=== PATIENT | male | born 1985 ===

== ENCOUNTER 2016-12-09 07:00 | Inpatient (IN) ==
[2016-12-09] MEDS ORDERED: diphenhydrAMINE CAP 25 MG CAPSULE PO PRN (09:07)
[2016-12-09] MEDS ORDERED: guaiFENesin 200 MG/10 ML UDCUP PO PRN (09:07)
[2016-12-09] MEDS ORDERED: chlorproMAZINE INJ 25 MG in SODIUM CHLORIDE 0.9% 100 ML IV PRN (09:07)
[2016-12-09] MEDS ORDERED: MAGNESIUM HYDROXIDE SUSP 30 ML UDCUP PO PRN (09:07)
[2016-12-09] MEDS ORDERED: MYLANTA/LIDO VISC 2:1 300 ML BOTTLE SWISH/SPIT PRN (09:07)
[2016-12-09] MEDS ORDERED: traMADol 50 MG TABLET PO PRN (09:07)
[2016-12-09] MEDS ORDERED: chlorproMAZINE 25 MG TABLET PO PRN (09:07)
[2016-12-09] MEDS ORDERED: MYLANTA/LIDO VISC 2:1 300 ML BOTTLE SWISH/SWAL PRN (09:07)
[2016-12-09] MEDS ORDERED: chlorproMAZINE INJ 50 MG in SODIUM CHLORIDE 0.9% 100 ML IV PRN (09:07)
[2016-12-09] MEDS ORDERED: LACTULOSE 20 GM/30 ML UDCUP PO PRN (09:07)
[2016-12-09] MEDS ORDERED: ALUMINUM/MAGNES/SIMETH MAX STR 30 ML UDCUP PO PRN (09:07)
[2016-12-09] MEDS ORDERED: LOPERAMIDE 2 MG CAPSULE PO PRN ×2 (09:07)
[2016-12-09] MEDS ORDERED: ACETAMINOPHEN 325 MG TABLET PO PRN (09:07)
[2016-12-09] MEDS ORDERED: TEMAZEPAM 7.5 MG CAPSULE PO PRN (09:07)
[2016-12-09] MEDS ORDERED: ALPRAZolam 0.25 MG TABLET PO PRN (09:07)
[2016-12-09] MEDS ORDERED: BENZTROPINE 2 MG/2 ML AMP IV PRN (09:07)
[2016-12-09] MEDS ORDERED: PROMETHAZINE INJ 25 MG in SODIUM CHLORIDE 0.9% 50 ML IV PRN (09:07)
[2016-12-09 10:08] LABS: Basophils # 0.1 10*3/uL (0.0-0.2); Basophils % 0.6 % (0.0-0.8); Eosinophils # 0.2 10*3/uL (0.0-0.87); Eosinophils % 2.5 % (0.00-10.9); Hematocrit 46.2 VOL% (42.0-52.0); Immature Granulocytes % 0.5 %; Immature Granulocytes Absolute 0.04 #; Lymphocytes # 2.6 10*3/uL (1.4-4.0); Lymphocytes % 32.7 % (21.2-54.2); Mean Corpuscular HGB Conc 32.5 GM/DL (32-36); Mean Corpuscular Hemoglobin 28 PG (27-34); Mean Corpuscular Volume 87.5 FL (87-102); Mean Platelet Volume 9.1 FL (9.6-12.0); Monocytes # 0.9 10*3/uL (0.11-0.8); Monocytes % 11.3 % (1.7-12.7); Neutrophils # 4.1 10*3/uL (1.4-7.4); Neutrophils % 52.4 % (38.7-73.9); Platelet Count 329 T/CUMM (130-400); Red Blood Count 5.28 MC/CUMM (3.8-5.5); Red Cell Distribution Width 13.6 % (9.3-17.3); White Blood Count 7.9 T/CUMM (4-12)
[2016-12-09 10:45] LABS: Albumin 3.5 G/DL (3.4-5.0); Bilirubin,Total 0.7 MG/DL (0.2-1.0); Calcium 8.7 MG/DL (8.5-10.1); Magnesium 2.1 MG/DL (1.8-2.4); Osmolality,Calculated 275.4 MOS/KG (273-304); Potassium 3.9 MMOL/L (3.5-5.1); Total Protein 7.8 G/DL (6.4-8.3)
[2016-12-09] MEDS ORDERED: DEXAMETHASONE 4 MG/1 ML VIAL IV ONE (12:30)
[2016-12-09] MEDS ORDERED: PALONOSETRON 0.25 MG/5 ML VIAL IV ONE (12:30)
--- NOTE | 2016-12-09 12:42 | CT Report ---
History: Testicular cancer Date: 12/09/2016 Study: CT abdomen and pelvis with IV and oral contrast Comparison exam: Outside CT abdomen and pelvis September 26, 2016 Technique: Spiral CT sections were obtained from the lung bases to the pubic symphysis following oral contrast and 100 mL Omnipaque [address] exam was performed using one or more of the following dose reduction techniques: Automated exposure control, adjustment of the mA and/or kV according to patient size, or use of iterative reconstruction technique. CT abdomen: The partially visualized lung bases are generally clear. There is no gross pleural or pericardial effusion. There is mild diffuse fatty infiltration of the otherwise unremarkable liver and pancreas. The spleen, adrenal glands, bile ducts, gallbladder, and kidneys are unremarkable. There is no aortic aneurysm. There is a lobular soft tissue mass in the retroperitoneum in a left para-aortic location compatible with retroperitoneal lymphadenopathy, measuring 72 x 59 x 92 mm on the current exam, as compared to 49 x 42 x 61 mm on the comparison study. There is effacement of the fat planes between this mass and the abdominal aorta and also between this mass and the anterior margin of the left psoas muscle. Some early local invasion cannot be excluded. There are some shotty mesenteric lymph nodes as before. The appendix is normal. CT pelvis: There are some shoddy inguinal lymph nodes bilaterally. This includes an 11 mm short axis diameter right inguinal node which previously measured 7 mm. Post orchiectomy changes on the left are noted. Impression: Worsening left para-aortic retroperitoneal soft tissue mass, presumably lymphadenopathy, compared to the previous study. PROCEDURE INTERPRETED AT [facility] DEPARTMENT OF RADIOLOGY Final Report Signed by: Dr. Naty Weems
[2016-12-09] MEDS: SODIUM CHLORIDE 0.9% 1,000 ML IV SCH (12:56)
[2016-12-09] MEDS: SODIUM CHLORIDE 0.9% IV SCH (13:03)
[2016-12-09] MEDS: ETOPOSIDE IV SCH (13:03)
[2016-12-09] MEDS: CISplatin 50 MG in SODIUM CHLORIDE 0.9% 500 ML IV SCH (14:28)
[2016-12-10] MEDS: SODIUM CHLORIDE 0.9% 1,000 ML IV SCH ×2 (06:00→21:56)
--- NOTE | 2016-12-10 08:55 | Oncology History&Physical ---
Assessment and Plan (1) Seminoma Status: Acute Assessment and plan: Continues cycle 1 day 2 chemotherapy etoposide and cis-sycuan Current Visit: Yes History of Present Illness Chief complaint: Chemotherapy History of present illness: Mr. 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 He is status post unilateral orchiectomy by Dr. Sheffield. The patient is staged as stage III with elevated LDH on presentation. We repeated a CT of the abdomen yesterday documenting the pre- chemotherapy size of his tumor. He did undergo pulmonary function test yesterday with consideration given to bleomycin. He is currently receiving etoposide and cis-sycuan. He is felt to be good risk with no visceral metastases. Home Medications Medication Instructions Recorded Confirmed Type No Known Home Medications [No 10/22/16 12/09/16 History Known Home Medications] Allergies Allergy/AdvReac Type Severity Reaction Status Date / Time No Known Allergies Allergy Verified 11/08/16 06:37 Medical,Surgical,& Family Hx - Medical History Neurology: No history of: Seizures HEENT: No history of: Eye Problem Respiratory: No history of: Respiratory Problems (Flu Vac Jul or Aug 2015/2016. CHRONIC COUGH) Genitourinary: History of: Problems (Lt Testicle Swollen/Tender; 10/23/16 Sched for US. LT TESTICULAR CA.) Gastrointestinal: History of: Liver Problems (Fatty Liver on CT), GI Problems ( 5 cm LUQ Abd Mass & Lump on CT) Musculoskeletal: History of: Back/Neck Problems (Low Back Pain) - Surgical History Abdominal Surgeries: Patient denies: Colonoscopy, EGD - Family History Family History: Denies;: Family Anesthesia Reaction - Social History Smoking Status: Never smoker - Constitutional Constitutional: Absent: chills, fatigue, fever(s) - EENT Eye: Absent: loss of vision Ears: Absent: ear discharge, ear pain Nose, mouth and throat: Absent: neck mass, neck pain - Cardiovascular Cardiovascular ROS IM: Absent: edema, orthopnea - Respiratory Respiratory: Absent: dyspnea, hemoptysis Exam - Constitutional Vitals: Period Temp Pulse Resp BP Sys/Olson Pulse Ox Last 24 Hr 96.9 F-98.2 F 64-92 16-20 110-137/58-77 92-98 General appearance: no acute distress, over weight - Head Head Exam: Present: normal inspection, normocephalic, atraumatic - Eye Eye Exam: Present: EOMI, conjunctival injection. Absent: periorbital swelling, scleral icterus - ENT ENT exam: Present: normal external ear exam - Neck Neck exam: Absent: normal inspection, lymphadenopathy - Respiratory Respiratory exam: Present: CTAB. Absent: accessory muscle use, chest wall tenderness - Cardiovascular Cardiovascular exam: Present: RRR. Absent: systolic murmur - GI/Abdominal GI/Abdominal exam: Absent: ascites, distended, firm, guarding - Neurological Exam Neurological exam: Present: alert, oriented X3 Results - Labs CBC & BMP: 12/09/16 09:48 12/09/16 09:48
[2016-12-10] MEDS: SODIUM CHLORIDE 0.9% IV SCH (11:48)
[2016-12-10] MEDS: TOBRAMYCIN/DEXAMETHASONE OPH OINT 3.5 GM TUBE BOTH EYES SCH ×3 (11:48→21:54)
[2016-12-10] MEDS: ETOPOSIDE IV SCH (11:48)
[2016-12-10] MEDS: CISplatin 50 MG in SODIUM CHLORIDE 0.9% 500 ML IV SCH (13:04)
[2016-12-10] MEDS: ONDANSETRON 4 MG/2 ML VIAL IV PRN (19:35)
[2016-12-11] MEDS ORDERED: PALONOSETRON 0.25 MG/5 ML VIAL IV ONE (08:26)
[2016-12-11] MEDS: TOBRAMYCIN/DEXAMETHASONE OPH OINT 3.5 GM TUBE BOTH EYES SCH ×3 (08:47→20:34)
--- NOTE | 2016-12-11 09:17 | Oncology Progress Note ---
Assessment and Plan (1) Seminoma Status: Acute Assessment and plan: Continues cycle 1 day 2 chemotherapy etoposide and cis-[place] Current Visit: Yes Oncology Subjective PN Interval history: Hospital day 3 for patient with seminoma on cycle 1 etoposide and cis-[place]. Some nausea is noted. He ate all of his breakfast this morning. He is awake alert in no acute distress. Obese body habitus is noted with soft nontender abdomen. He is ambulatory in no acute distress. He will complete chemotherapy in approximately 48 hours Exam - Constitutional Vitals: Period Temp Pulse Resp BP Sys/Olson Pulse Ox Last 24 Hr 97.1 F-98.5 F 68-81 18-20 120-144/65-88 96-98 Results - Labs CBC & BMP: 12/09/16 09:48 12/09/16 09:48
[2016-12-11] MEDS: SODIUM CHLORIDE 0.9% 1,000 ML IV SCH (10:28)
[2016-12-11] MEDS: ETOPOSIDE IV SCH (11:28)
[2016-12-11] MEDS: SODIUM CHLORIDE 0.9% IV SCH (11:28)
[2016-12-11] MEDS: CISplatin 50 MG in SODIUM CHLORIDE 0.9% 500 ML IV SCH (12:49)
[2016-12-11] MEDS: ONDANSETRON 4 MG/2 ML VIAL IV PRN (18:21)
[2016-12-12 04:51] LABS: Basophils # 0.1 10*3/uL (0.0-0.2); Basophils % 0.7 % (0.0-0.8); Eosinophils # 0.1 10*3/uL (0.0-0.87); Hematocrit 43.9 VOL% (42.0-52.0); Hemoglobin 14.2 GM/DL (14.0-18.0); Immature Granulocytes % 0.1 %; Immature Granulocytes Absolute 0.01 #; Mean Corpuscular HGB Conc 32.3 GM/DL (32-36); Mean Corpuscular Hemoglobin 28 PG (27-34); Mean Corpuscular Volume 86.4 FL (87-102); Mean Platelet Volume 9.9 FL (9.6-12.0); Monocytes # 0.5 10*3/uL (0.11-0.8); Monocytes % 6.4 % (1.7-12.7); Neutrophils # 3.6 10*3/uL (1.4-7.4); Neutrophils % 49.8 % (38.7-73.9); Platelet Count 294 T/CUMM (130-400); Red Blood Count 5.08 MC/CUMM (3.8-5.5); Red Cell Distribution Width 13.5 % (9.3-17.3); White Blood Count 7.2 T/CUMM (4-12)
[2016-12-12] MEDS: SODIUM CHLORIDE 0.9% 1,000 ML IV SCH ×2 (05:24→15:44)
--- NOTE | 2016-12-12 07:54 | Oncology Progress Note ---
Assessment and Plan (1) Seminoma Status: Acute Assessment and plan: Continues cycle 1 day 2 chemotherapy etoposide and cis-[place] Current Visit: Yes Oncology Subjective PN Interval history: Hospital day 4 for cycle 1 etoposide and cisplatin chemotherapy. Patient reports mild nausea. Good urine output. No abdominal pain at this time. No dysuria or hematuria. Lungs are clear to bilateral auscultation. Plans for discharge tomorrow. Exam - Constitutional Vitals: Period Temp Pulse Resp BP Sys/Olson Pulse Ox Last 24 Hr 96.3 F-98.7 F 61-81 16-24 104-160/56-99 95-99 Results - Labs CBC & BMP: 12/12/16 03:56 12/09/16 09:48
[2016-12-12] MEDS: TOBRAMYCIN/DEXAMETHASONE OPH OINT 3.5 GM TUBE BOTH EYES SCH ×3 (09:15→20:53)
[2016-12-12] MEDS: ETOPOSIDE IV SCH (11:37)
[2016-12-12] MEDS: SODIUM CHLORIDE 0.9% IV SCH (11:37)
[2016-12-12] MEDS: CISplatin 50 MG in SODIUM CHLORIDE 0.9% 500 ML IV SCH (13:49)
[2016-12-12 14:53] LABS: Apearance,Urine CLEAR (Clear); Bilirubin,Urine Negative (Negative); Blood, Urine Negative (Negative); Glucose,Urine (UA) Negative (Negative); Ketones,Urine Negative (Negative); Nitrite,Urine Negative (Negative); Protein,Urine Negative; RBC,Urine 1 /HPF (0-4); Urine Color Straw (Yellow); Urine Specific Gravity 1.008 (1.001-1.035); Urine Urobilinogen < 2.0 EU/DL (0.2-1.0); WBC,Urine <1 /HPF (0-6)
[2016-12-13 05:22] LABS: Basophils % 0.5 % (0.0-0.8); Hematocrit 44.4 VOL% (42.0-52.0); Mean Corpuscular Volume 83.6 FL (87-102); Red Blood Count 5.31 MC/CUMM (3.8-5.5)
[2016-12-13 05:32] LABS: Eosinophils # 0.1 10*3/uL (0.0-0.87); Eosinophils % 1.5 % (0.00-10.9); Hemoglobin 14.8 GM/DL (14.0-18.0); Immature Granulocytes % 0.8 %; Immature Granulocytes Absolute 0.05 #; Lymphocytes # 1.8 10*3/uL (1.4-4.0); Lymphocytes % 29.4 % (21.2-54.2); Mean Corpuscular HGB Conc 33.3 GM/DL (32-36); Mean Corpuscular Hemoglobin 28 PG (27-34); Monocytes # 0.2 10*3/uL (0.11-0.8); Monocytes % 2.7 % (1.7-12.7); Neutrophils % 65.1 % (38.7-73.9); Platelet Count 283 T/CUMM (130-400); Red Cell Distribution Width 13.5 % (9.3-17.3); White Blood Count 6.2 T/CUMM (4-12)
[2016-12-13] MEDS: SODIUM CHLORIDE 0.9% 1,000 ML IV SCH (05:32)
--- NOTE | 2016-12-13 09:50 | Discharge Summary ---
Hospital Course - Hospital Course Hospital Course: Patient with stage III seminoma admitted for first chemotherapy with etoposide and cis-[place]. Fair tolerance with moderate nausea. He is given Phenergan 25 mg p.o. every 4 hours as needed nausea vomiting for home medication. He will be readmitted on Friday, December 30 for his next course of chemotherapy. Data reviewed from this admission include tumor markers, CT abdomen, and pulmonary function tests showing moderate restrictive lung disease. Bleomycin is not to be administered. We are planning EP 4 cycles then reevaluate probably with PET scan Diagnosis - Discharge Diagnosis (1) Seminoma Status: Acute Discharge Plan - Discharge Medications No Action No Known Home Medications [No Known Home Medications] - Follow Up or Referral - Forms/Instructions Exam - Constitutional Vitals: Period Temp Pulse Resp BP Sys/Olson Pulse Ox Last 24 Hr 97.2 F-98.2 F 62-84 17-22 100-179/56-89 95-98 Discharge Results Labs on day of discharge: Labs from last 24 hours 12/13/16 12/12/16 05:04 12:50 WBC 6.2 RBC 5.31 Hgb 14.8 Hct 44.4 MCV 83.6 L MCH 28 MCHC 33.3 RDW 13.5 Plt Count 283 MPV 10.0 Neut % (Auto) 65.1 Lymph % (Auto) 29.4 [place] % (Auto) 2.7 Eos % (Auto) 1.5 Baso % (Auto) 0.5 Neut # (Auto) 4.0 Lymph # (Auto) 1.8 [place] # (Auto) 0.2 Eos # (Auto) 0.1 Baso # (Auto) 0.0 Immature Gran % 0.8 Nucleated RBC % 0.0 Immature Gran # 0.05 Nucleated RBCs # 0.00 Urine Color Straw Urine Appearance Clear Urine pH 6.0 Ur Specific [place] 1.008 Urine Protein Negative Urine Glucose (UA) Negative Urine Ketones Negative Urine Blood Negative Urine Nitrate Negative Urine Bilirubin Negative Urine Urobilinogen < 2.0 H Urine Leukocytes Negative Urine RBC 1 Urine WBC <1 Ur Culture Indicated? Not indicated DS: Provider Date of admission: 12/09/16 07:59 Primary care physician: Zion Veliz MD Attending physician on admission: Tha Post MD Consults: 12/09/16 11:11 Consult to Pharmacy [CONS] Routine Reason for Pharmacy Consult: Adjust Meds Renal Funct Discharging clinician: Tha Post MD
[2016-12-13] MEDS: CISplatin 50 MG in SODIUM CHLORIDE 0.9% 500 ML IV SCH (10:40)
[2016-12-13] MEDS: TOBRAMYCIN/DEXAMETHASONE OPH OINT 3.5 GM TUBE BOTH EYES SCH ×2 (10:43→14:41)
[2016-12-13] MEDS: ETOPOSIDE IV SCH (12:37)
[2016-12-13] MEDS: SODIUM CHLORIDE 0.9% IV SCH (12:37)
[2016-12-13] MEDS ORDERED: HEPARIN LOCK FLUSH 500 UNIT/5 ML SYRINGE IV ONE (14:28)
[2016-12-13] MEDS: ONDANSETRON 4 MG/2 ML VIAL IV PRN (14:39)
[2016-12-13 16:23] VITALS: BP 125/76
== END 2016-12-13 16:30 | disposition home or self-care, planned readmission (81) | DRG 847 ==
LOC: N.4E 07:59
PROVIDERS: ADMIT Specialist; ATTEND Specialist

== ENCOUNTER 2016-12-30 07:00 | Inpatient (IN) ==
[2016-12-30] MEDS ORDERED: ACETAMINOPHEN 325 MG TABLET PO PRN (10:45)
[2016-12-30] MEDS ORDERED: chlorproMAZINE INJ 50 MG in SODIUM CHLORIDE 0.9% 100 ML IV PRN (10:45)
[2016-12-30] MEDS ORDERED: TEMAZEPAM 7.5 MG CAPSULE PO PRN (10:45)
[2016-12-30] MEDS ORDERED: diphenhydrAMINE CAP 25 MG CAPSULE PO PRN (10:45)
[2016-12-30] MEDS ORDERED: guaiFENesin 200 MG/10 ML UDCUP PO PRN (10:45)
[2016-12-30] MEDS ORDERED: BENZTROPINE 2 MG/2 ML AMP IV PRN (10:45)
[2016-12-30] MEDS ORDERED: LOPERAMIDE 2 MG CAPSULE PO PRN ×2 (10:45)
[2016-12-30] MEDS ORDERED: traMADol 50 MG TABLET PO PRN (10:45)
[2016-12-30] MEDS ORDERED: ALUMINUM/MAGNES/SIMETH MAX STR 30 ML UDCUP PO PRN (10:45)
[2016-12-30] MEDS ORDERED: chlorproMAZINE INJ 25 MG in SODIUM CHLORIDE 0.9% 100 ML IV PRN (10:45)
[2016-12-30] MEDS ORDERED: ONDANSETRON 4 MG/2 ML VIAL IV PRN (10:45)
[2016-12-30] MEDS ORDERED: LACTULOSE 20 GM/30 ML UDCUP PO PRN (10:45)
[2016-12-30] MEDS ORDERED: MAGNESIUM HYDROXIDE SUSP 30 ML UDCUP PO PRN (10:45)
[2016-12-30] MEDS ORDERED: MYLANTA/LIDO VISC 2:1 300 ML BOTTLE SWISH/SWAL PRN (10:45)
[2016-12-30] MEDS ORDERED: PROMETHAZINE INJ 25 MG in SODIUM CHLORIDE 0.9% 50 ML IV PRN (10:45)
[2016-12-30] MEDS ORDERED: chlorproMAZINE 25 MG TABLET PO PRN (10:45)
[2016-12-30] MEDS ORDERED: ALPRAZolam 0.25 MG TABLET PO PRN (10:45)
[2016-12-30] MEDS ORDERED: MYLANTA/LIDO VISC 2:1 300 ML BOTTLE SWISH/SPIT PRN (10:45)
[2016-12-30 11:03] LABS: Basophils % 0.3 % (0.0-0.8); Eosinophils # 0.1 10*3/uL (0.0-0.87); Eosinophils % 1.1 % (0.00-10.9); Hematocrit 39.3 VOL% (42.0-52.0); Hemoglobin 13.5 GM/DL (14.0-18.0); Immature Granulocytes Absolute 0.13 #; Lymphocytes # 2.6 10*3/uL (1.4-4.0); Lymphocytes % 39.8 % (21.2-54.2); Mean Corpuscular HGB Conc 34.4 GM/DL (32-36); Mean Corpuscular Hemoglobin 29 PG (27-34); Mean Corpuscular Volume 83.8 FL (87-102); Mean Platelet Volume 8.6 FL (9.6-12.0); Monocytes # 0.8 10*3/uL (0.11-0.8); Monocytes % 12.5 % (1.7-12.7); Neutrophils # 2.9 10*3/uL (1.4-7.4); Neutrophils % 44.3 % (38.7-73.9); Platelet Count 288 T/CUMM (130-400); Red Blood Count 4.69 MC/CUMM (3.8-5.5); Red Cell Distribution Width 14.6 % (9.3-17.3); White Blood Count 6.6 T/CUMM (4-12)
[2016-12-30 11:32] LABS: Alanine Aminotransferase 46 U/L (16-61); Albumin 3.4 G/DL (3.4-5.0); Alkaline Phosphatase 115 U/L (45-117); Aspartate Amino Transferase 23 U/L (0-37); Bilirubin,Total < 0.39 MG/DL (0.2-1.0); Blood Urea Nitrogen 12 MG/DL (7-18); Calcium 8.6 MG/DL (8.5-10.1); Glucose 142 MG/DL (74-106); Magnesium 1.8 MG/DL (1.8-2.4); Osmolality,Calculated 284.1 MOS/KG (273-304); Potassium 3.8 MMOL/L (3.5-5.1); Sodium 142 MMOL/L (136-145); Total Protein 7.6 G/DL (6.4-8.3); Uric Acid 5.2 MG/DL (3.5-7.2)
[2016-12-30] MEDS ORDERED: PALONOSETRON 0.25 MG/5 ML VIAL IV SCH (13:00)
[2016-12-30] MEDS ORDERED: DEXAMETHASONE 10 MG/1 ML VIAL IV ONE (13:00)
[2016-12-30] MEDS: ETOPOSIDE IV SCH (14:09)
[2016-12-30] MEDS: SODIUM CHLORIDE 0.9% IV SCH (14:09)
[2016-12-30] MEDS: CISplatin 50 MG in SODIUM CHLORIDE 0.9% 500 ML IV SCH (15:17)
[2016-12-30] MEDS: SODIUM CHLORIDE 0.9% 1,000 ML IV SCH (15:17)
[2016-12-31] MEDS: SODIUM CHLORIDE 0.9% 1,000 ML IV SCH ×2 (03:23→20:50)
--- NOTE | 2016-12-31 08:30 | Oncology History&Physical ---
Assessment and Plan (1) Seminoma Status: Acute Assessment and plan: Continue cycle 2 days 1 through 5 etoposide and cis-[place] chemotherapy. We are planning 4 cycles. Current Visit: No History of Present Illness Chief complaint: Chemotherapy History of present illness: Mr. Sheffield is a 31 year old male Admitted for cycle 2 chemotherapy for stage III seminoma status post unilateral orchiectomy. The patient has retroperitoneal metastasis. His LDH is normal. A beta hCG is pending. He tolerated cycle 1 etoposide and cisplatin reasonably well with 2-3 days of nausea. He is eating well at this time and appears nontoxic Home Medications Medication Instructions Recorded Confirmed Type Promethazine Tab [Phenergan Tab] 25 mg PO Q6H PRN 12/13/16 12/13/16 History Allergies Allergy/AdvReac Type Severity Reaction Status Date / Time No Known Allergies Allergy Verified 11/08/16 06:37 Medical,Surgical,& Family Hx - Medical History Neurology: No history of: Seizures HEENT: No history of: Eye Problem Respiratory: No history of: Respiratory Problems (Flu Vac Jul or Aug 2015/2016. CHRONIC COUGH) Genitourinary: History of: Problems (Lt Testicle Swollen/Tender; 10/23/16 Sched for US. LT TESTICULAR CA.) Gastrointestinal: History of: Liver Problems (Fatty Liver on CT), GI Problems ( 5 cm LUQ Abd Mass & Lump on CT) Musculoskeletal: History of: Back/Neck Problems (Low Back Pain) - Surgical History Abdominal Surgeries: Patient denies: Colonoscopy, EGD - Family History Family History: Denies;: Family Anesthesia Reaction - Social History Smoking Status: Never smoker - Constitutional Constitutional: Absent: fever(s) - EENT Eye: Absent: blurry vision Ears: Absent: decreased hearing Nose, mouth and throat: Absent: dizziness, dysphagia, epistaxis - Cardiovascular Cardiovascular ROS IM: Absent: chest pain, palpitations - Respiratory Respiratory: Absent: cough, dyspnea, hemoptysis - Gastrointestinal Gastrointestinal: Absent: cramping, diarrhea - Musculoskeletal Musculoskeletal ROS: Absent: back pain, joint swelling - Neurological Neurological ROS: Absent: dizziness, focal weakness Exam - Constitutional Vitals: Period Temp Pulse Resp BP Sys/Olson Pulse Ox Last 24 Hr 96.2 F-98.2 F 88-103 18-22 104-152/56-94 93-100 General appearance: no acute distress, morbidly obese - Head Head Exam: Present: normal inspection, normocephalic, atraumatic - Eye Eye Exam: Present: EOMI. Absent: conjunctival injection, periorbital swelling, scleral icterus Pupils: Present: PERRL, normal accommodation - ENT ENT exam: Present: normal external ear exam - Neck Neck exam: Present: normal inspection. Absent: lymphadenopathy - Respiratory Respiratory exam: Present: CTAB. Absent: accessory muscle use, chest wall tenderness - Cardiovascular Cardiovascular exam: Present: RRR - GI/Abdominal GI/Abdominal exam: Absent: ascites, distended - Neurological Exam Neurological exam: Present: alert, oriented X3 Results - Labs CBC & BMP: 12/30/16 10:54 12/30/16 10:54
[2016-12-31] MEDS: ETOPOSIDE IV SCH (13:09)
[2016-12-31] MEDS: SODIUM CHLORIDE 0.9% IV SCH (13:09)
[2016-12-31] MEDS: CISplatin 50 MG in SODIUM CHLORIDE 0.9% 500 ML IV SCH (14:24)
--- NOTE | 2017-01-01 08:32 | Oncology Progress Note ---
Assessment and Plan (1) Seminoma Status: Acute Assessment and plan: Continue cycle 2 days 1 through 5 etoposide and cis-[place] chemotherapy. We are planning 4 cycles. Current Visit: No Oncology Subjective PN Interval history: Cycle 2 day 3 etoposide and cis-[place] for stage III seminoma. Excellent tolerance of chemotherapy. Beta hCG showing significant reduction. Unremarkable examination. Continue present chemotherapy Exam - Constitutional Vitals: Period Temp Pulse Resp BP Sys/Olson Pulse Ox Last 24 Hr 97.5 F-98.4 F 71-102 - 103-141/51-90 96-97 Results - Labs CBC & BMP: 12/30/16 10:54 12/30/16 10:54
[2017-01-01] MEDS: SODIUM CHLORIDE 0.9% 1,000 ML IV SCH (10:01)
[2017-01-01 11:17] LABS: Apearance,Urine CLEAR (Clear); Bilirubin,Urine Negative (Negative); Blood, Urine Negative (Negative); Glucose,Urine (UA) Negative (Negative); Ketones,Urine Negative (Negative); Mucus,Urine Occasional /LPF (Occasional); Nitrite,Urine Negative (Negative); Protein,Urine Negative; RBC,Urine 1 /HPF (0-4); Squamous Epithelial Cell,Urine Occasional /HPF (0-10); Urine Color Yellow (Yellow); Urine Specific Gravity 1.014 (1.001-1.035); Urine Urobilinogen < 2.0 EU/DL (0.2-1.0); WBC,Urine 3 /HPF (0-6)
[2017-01-01] MEDS: SODIUM CHLORIDE 0.9% IV SCH (14:37)
[2017-01-01] MEDS: ETOPOSIDE IV SCH (14:37)
[2017-01-01] MEDS: CISplatin 50 MG in SODIUM CHLORIDE 0.9% 500 ML IV SCH (15:51)
[2017-01-02] MEDS ORDERED: DEXAMETHASONE 10 MG/1 ML VIAL IV ONE (08:15)
[2017-01-02] MEDS ORDERED: PALONOSETRON 0.25 MG/5 ML VIAL IV ONE (08:15)
[2017-01-02] MEDS: SODIUM CHLORIDE 0.9% 1,000 ML IV SCH ×2 (09:47→21:20)
--- NOTE | 2017-01-02 12:17 | Oncology Progress Note ---
Assessment and Plan (1) Seminoma Status: Acute Assessment and plan: Continue cycle 2 days 1 through 5 etoposide and cis-[place] chemotherapy. We are planning 4 cycles. Current Visit: No Oncology Subjective PN Interval history: Patient is nauseated this morning with some emesis present. We will re-dose with palonosetron and dexamethasone. His lungs are clear and he appears in no acute distress. He is scheduled to complete chemotherapy tomorrow. He is ambulating without difficulty Exam - Constitutional Vitals: Period Temp Pulse Resp BP Sys/Olson Pulse Ox Last 24 Hr 97.0 F-97.6 F 67-80 - 101-130/59-88 91-98 Results - Labs CBC & BMP: 12/30/16 10:54 12/30/16 10:54
[2017-01-02] MEDS: ETOPOSIDE IV SCH (15:24)
[2017-01-02] MEDS: SODIUM CHLORIDE 0.9% IV SCH (15:24)
[2017-01-02] MEDS: CISplatin 50 MG in SODIUM CHLORIDE 0.9% 500 ML IV SCH (17:44)
[2017-01-03] MEDS: SODIUM CHLORIDE 0.9% 1,000 ML IV SCH (07:04)
--- NOTE | 2017-01-03 11:30 | Discharge Summary ---
Hospital Course - Hospital Course Hospital Course: Patient with seminoma admitted for cycle 2 chemotherapy. He has had an uneventful hospital course and will receive day 5 treatment today. He will continue Phenergan as needed as his only home medication with plans to readmit on January 20. Physical exam unchanged and unremarkable Diagnosis - Discharge Diagnosis (1) Seminoma Status: Acute Discharge Plan - Discharge Medications Continue Promethazine Tab [Phenergan Tab] 25 mg PO Q6H PRN PRN Reason: Nausea - Follow Up or Referral - Forms/Instructions Exam - Constitutional Vitals: Period Temp Pulse Resp BP Sys/Olson Pulse Ox Last 24 Hr 96.5 F-98.5 F 65-73 19-21 101-126/57-63 97-100 DS: Provider Date of admission: 12/30/16 09:16 Primary care physician: Zion Veliz MD Attending physician on admission: Tha Post MD Discharging clinician: Tha Post MD
[2017-01-03] MEDS: SODIUM CHLORIDE 0.9% IV SCH (11:57)
[2017-01-03] MEDS: ETOPOSIDE IV SCH (11:57)
[2017-01-03] MEDS: CISplatin 50 MG in SODIUM CHLORIDE 0.9% 500 ML IV SCH (12:55)
[2017-01-03 15:12] VITALS: BP 132/82
== END 2017-01-03 15:10 | disposition home or self-care, planned readmission (81) | DRG 847 ==
LOC: N.4E 09:16
PROVIDERS: ADMIT Specialist; ATTEND Specialist

== ENCOUNTER 2017-01-20 07:00 | Inpatient (IN) ==
[2017-01-20] MEDS ORDERED: MYLANTA/LIDO VISC 2:1 300 ML BOTTLE SWISH/SWAL PRN (09:44)
[2017-01-20] MEDS ORDERED: ALUMINUM/MAGNES/SIMETH MAX STR 30 ML UDCUP PO PRN (09:44)
[2017-01-20] MEDS ORDERED: ALPRAZolam 0.25 MG TABLET PO PRN (09:44)
[2017-01-20] MEDS ORDERED: chlorproMAZINE INJ 50 MG in SODIUM CHLORIDE 0.9% 100 ML IV PRN (09:44)
[2017-01-20] MEDS ORDERED: PROMETHAZINE INJ 25 MG in SODIUM CHLORIDE 0.9% 50 ML IV PRN (09:44)
[2017-01-20] MEDS ORDERED: ACETAMINOPHEN 325 MG TABLET PO PRN (09:44)
[2017-01-20] MEDS ORDERED: chlorproMAZINE INJ 25 MG in SODIUM CHLORIDE 0.9% 100 ML IV PRN (09:44)
[2017-01-20] MEDS ORDERED: TEMAZEPAM 7.5 MG CAPSULE PO PRN (09:44)
[2017-01-20] MEDS ORDERED: diphenhydrAMINE CAP 25 MG CAPSULE PO PRN (09:44)
[2017-01-20] MEDS ORDERED: MAGNESIUM HYDROXIDE SUSP 30 ML UDCUP PO PRN (09:44)
[2017-01-20] MEDS ORDERED: traMADol 50 MG TABLET PO PRN (09:44)
[2017-01-20] MEDS ORDERED: MYLANTA/LIDO VISC 2:1 300 ML BOTTLE SWISH/SPIT PRN (09:44)
[2017-01-20] MEDS ORDERED: guaiFENesin 200 MG/10 ML UDCUP PO PRN (09:44)
[2017-01-20] MEDS ORDERED: LOPERAMIDE 2 MG CAPSULE PO PRN ×2 (09:44)
[2017-01-20] MEDS ORDERED: LACTULOSE 20 GM/30 ML UDCUP PO PRN (09:44)
[2017-01-20] MEDS ORDERED: chlorproMAZINE 25 MG TABLET PO PRN (09:44)
[2017-01-20] MEDS ORDERED: BENZTROPINE 2 MG/2 ML AMP IV PRN (09:44)
[2017-01-20 10:07] LABS: Basophils % 0.2 % (0.0-0.8); Eosinophils % 0.6 % (0.00-10.9); Hematocrit 30.2 VOL% (42.0-52.0); Hemoglobin 10.3 GM/DL (14.0-18.0); Immature Granulocytes % 5.4 %; Immature Granulocytes Absolute 0.34 #; Lymphocytes # 2.7 10*3/uL (1.4-4.0); Lymphocytes % 42.9 % (21.2-54.2); Mean Corpuscular HGB Conc 34.1 GM/DL (32-36); Mean Corpuscular Hemoglobin 28 PG (27-34); Mean Corpuscular Volume 82.1 FL (87-102); Monocytes # 0.8 10*3/uL (0.11-0.8); NRBC # 0.03 10*3/uL; Neutrophils # 2.5 10*3/uL (1.4-7.4); Neutrophils % 38.9 % (38.7-73.9); Platelet Count 274 T/CUMM (130-400); Red Blood Count 3.68 MC/CUMM (3.8-5.5); Red Cell Distribution Width 14.1 % (9.3-17.3); White Blood Count 6.3 T/CUMM (4-12)
[2017-01-20 10:39] LABS: Band Neutrophils 4 % (0-10); Lymphocytes 42 % (20-55); Segmented Neutrophils 42 % (50-85); Total Cells Counted 100
[2017-01-20 10:40] LABS: Hypochromasia 1+; Microcytosis Slight; Ovalocytes Slight; Platelet Estimate Adequate
[2017-01-20 10:45] LABS: Alanine Aminotransferase 42 U/L (16-61); Alkaline Phosphatase 104 U/L (45-117); Aspartate Amino Transferase 26 U/L (0-37); Bilirubin,Total < 0.39 MG/DL (0.2-1.0); Blood Urea Nitrogen 11 MG/DL (7-18); Calcium 8.5 MG/DL (8.5-10.1); Glucose 107 MG/DL (74-106); Magnesium 1.6 MG/DL (1.8-2.4); Potassium 4.3 MMOL/L (3.5-5.1); Sodium 143 MMOL/L (136-145); Total Protein 6.4 G/DL (6.4-8.3)
[2017-01-20] MEDS ORDERED: DEXAMETHASONE 4 MG/1 ML VIAL IV ONE (13:00)
[2017-01-20] MEDS ORDERED: PALONOSETRON 0.25 MG/5 ML VIAL IV ONE (13:00)
[2017-01-20] MEDS: SODIUM CHLORIDE 0.9% 1,000 ML IV SCH (14:39)
[2017-01-20] MEDS: SODIUM CHLORIDE 0.9% IV SCH (14:39)
[2017-01-20] MEDS: ETOPOSIDE IV SCH (14:39)
[2017-01-20] MEDS: CISplatin 50 MG in SODIUM CHLORIDE 0.9% 500 ML IV SCH (16:03)
[2017-01-20 18:31] LABS: Apearance,Urine CLEAR (Clear); Bilirubin,Urine Negative (Negative); Blood, Urine Negative (Negative); Glucose,Urine (UA) Negative (Negative); Ketones,Urine Negative (Negative); Mucus,Urine Occasional /LPF (Occasional); Nitrite,Urine Negative (Negative); Protein,Urine Negative; RBC,Urine <1 /HPF (0-4); Squamous Epithelial Cell,Urine Occasional /HPF (0-10); Urine Color Colorless (Yellow); Urine Specific Gravity 1.009 (1.001-1.035); Urine Urobilinogen < 2.0 EU/DL (0.2-1.0); WBC,Urine <1 /HPF (0-6)
[2017-01-21] MEDS: SODIUM CHLORIDE 0.9% 1,000 ML IV SCH ×2 (04:34→21:05)
[2017-01-21] MEDS ORDERED: PROMETHAZINE 25 MG TABLET PO PRN (08:31)
--- NOTE | 2017-01-21 08:34 | Oncology History&Physical ---
Assessment and Plan (1) Seminoma Status: Acute Assessment and plan: Continue cycle 3 chemotherapy without modification. Current Visit: No History of Present Illness Chief complaint: Chemotherapy History of present illness: Mr. Sheffield is a 31 year old male With stage III seminoma status post unilateral orchiectomy admitted for cycle 3 of chemotherapy with etoposide and cis-[place]. The patient's hCG level from previous admission showed significant response. We are treating and abdominal lymph node mass. As discussed with patient today we would perform PET scan after completion of 4 cycles. I think his tolerance of current therapy is very well. He is ambulating and has gained some weight. He reported 4-5 days of nausea following discharge last cycle. Home Medications Medication Instructions Recorded Confirmed Type Promethazine Tab [Phenergan Tab] 25 mg PO Q6H PRN 12/13/16 01/20/17 History Allergies Allergy/AdvReac Type Severity Reaction Status Date / Time No Known Allergies Allergy Verified 11/08/16 06:37 Medical,Surgical,& Family Hx - Medical History Neurology: No history of: Seizures HEENT: No history of: Eye Problem Respiratory: No history of: Respiratory Problems (Flu Vac Jul or Aug 2015/2016. CHRONIC COUGH) Genitourinary: History of: Problems (Lt Testicle Swollen/Tender; 10/23/16 Sched for US. LT TESTICULAR CA.) Gastrointestinal: History of: Liver Problems (Fatty Liver on CT), GI Problems ( 5 cm LUQ Abd Mass & Lump on CT) Musculoskeletal: History of: Back/Neck Problems (Low Back Pain) - Surgical History Abdominal Surgeries: Patient denies: Colonoscopy, EGD - Family History Family History: Denies;: Family Anesthesia Reaction - Social History Smoking Status: Never smoker - EENT Eye: Absent: blurry vision Ears: Absent: decreased hearing Nose, mouth and throat: Absent: dizziness, dysphagia, epistaxis - Cardiovascular Cardiovascular ROS IM: Absent: chest pain - Respiratory Respiratory: Absent: cough - Musculoskeletal Musculoskeletal ROS: Absent: arthralgias - Psychiatric Psychiatric General: Absent: anxiety - Hematologic/Lymphatic Hematologic/Lymphatic: Absent: easy bleeding Exam - Constitutional Vitals: Period Temp Pulse Resp BP Sys/Olson Pulse Ox Last 24 Hr 97 F-98.2 F 76-90 16-21 116-137/68-85 93-99 General appearance: no acute distress, over weight - Head Head Exam: Present: normal inspection, normocephalic - Eye Eye Exam: Present: EOMI. Absent: conjunctival injection Pupils: Present: PERRL - ENT ENT exam: Present: normal exam, normal external ear exam - Neck Neck exam: Present: normal inspection. Absent: lymphadenopathy, tenderness, thyromegaly - Respiratory Respiratory exam: Present: CTAB, accessory muscle use - Cardiovascular Cardiovascular exam: Present: RRR. Absent: systolic murmur - GI/Abdominal GI/Abdominal exam: Absent: ascites, guarding - Extremities Exam Extremities exam: Present: normal inspection. Absent: edema - Neurological Exam Neurological exam: Present: alert, oriented X3 - Psychiatric Psychiatric exam: Present: normal affect, normal mood Results - Labs CBC & BMP: 01/20/17 09:51 01/20/17 09:51
[2017-01-21] MEDS: MAGNESIUM OXIDE 400 MG TABLET PO SCH (12:13)
[2017-01-21] MEDS: ONDANSETRON 4 MG/2 ML VIAL IV PRN (12:14)
[2017-01-21] MEDS: SODIUM CHLORIDE 0.9% IV SCH (12:16)
[2017-01-21] MEDS: ETOPOSIDE IV SCH (12:16)
[2017-01-21] MEDS: CISplatin 50 MG in SODIUM CHLORIDE 0.9% 500 ML IV SCH (14:21)
--- NOTE | 2017-01-22 08:45 | Oncology Progress Note ---
Assessment and Plan (1) Seminoma Status: Acute Assessment and plan: Continue cycle 3 chemotherapy without modification. Current Visit: No Oncology Subjective PN Interval history: Cycle 3 day 3 etoposide and cis-[place]. Stage III seminoma. Good tolerance. Patient reports only mild constipation. He denies shortness of breath. He is ambulating well. We will plan on re-dosing with aggressive antiemetics on Friday just before discharge as days 6 through 10 were most symptomatic based upon last cycle. Exam - Constitutional Vitals: Period Temp Pulse Resp BP Sys/Olson Pulse Ox Last 24 Hr 97.6 F-99 F 85-95 16-20 110-165/65-89 96-99 Results - Labs CBC & BMP: 01/20/17 09:51 01/20/17 09:51
[2017-01-22] MEDS ORDERED: MAGNESIUM SULF RIDER 2 GM in PREMIX 1 EACH IV ONE (10:55)
[2017-01-22] MEDS ORDERED: SODIUM CHLORIDE 0.9% 500 ML IV ONE (10:56)
[2017-01-22] MEDS: MAGNESIUM OXIDE 400 MG TABLET PO SCH (11:20)
[2017-01-22] MEDS: SODIUM CHLORIDE 0.9% IV SCH (14:41)
[2017-01-22] MEDS: ETOPOSIDE IV SCH (14:41)
[2017-01-22] MEDS: CISplatin 50 MG in SODIUM CHLORIDE 0.9% 500 ML IV SCH (15:21)
[2017-01-22] MEDS: SODIUM CHLORIDE 0.9% 1,000 ML IV SCH (21:00)
[2017-01-23] MEDS: SODIUM CHLORIDE 0.9% 1,000 ML IV SCH ×3 (00:28→21:23)
--- NOTE | 2017-01-23 09:01 | Oncology Progress Note ---
Assessment and Plan (1) Seminoma Status: Acute Assessment and plan: Continue cycle 3 chemotherapy without modification. Current Visit: No Oncology Subjective PN Interval history: c3d4 etop/cis for stage 3 seminoma mild nausea today ambulating well non toxic home tomorrow Exam - Constitutional Vitals: Period Temp Pulse Resp BP Sys/Olson Pulse Ox Last 24 Hr 97.3 F-99.6 F 83-94 18-20 105-120/58-76 94-99 Results - Labs CBC & BMP: 01/20/17 09:51 01/20/17 09:51
[2017-01-23] MEDS: MAGNESIUM OXIDE 400 MG TABLET PO SCH (10:10)
[2017-01-23] MEDS: ONDANSETRON 4 MG/2 ML VIAL IV PRN (10:10)
[2017-01-23] MEDS ORDERED: SODIUM CHLORIDE 0.9% 500 ML IV ONE (11:16)
[2017-01-23] MEDS: ETOPOSIDE IV SCH (12:13)
[2017-01-23] MEDS: SODIUM CHLORIDE 0.9% IV SCH (12:13)
[2017-01-23] MEDS: CISplatin 50 MG in SODIUM CHLORIDE 0.9% 500 ML IV SCH (13:29)
[2017-01-24] MEDS: SODIUM CHLORIDE 0.9% 1,000 ML IV SCH (07:37)
[2017-01-24] MEDS: MAGNESIUM OXIDE 400 MG TABLET PO SCH (08:21)
[2017-01-24] MEDS ORDERED: SODIUM CHLORIDE 0.9% 500 ML IV ONE (09:00)
[2017-01-24] MEDS ORDERED: FOSAPREPITANT 150 MG in SODIUM CHLORIDE 0.9% 100 ML IV ONE (09:00)
[2017-01-24] MEDS ORDERED: PALONOSETRON 0.25 MG/5 ML VIAL IV ONE (09:00)
[2017-01-24] MEDS ORDERED: DEXAMETHASONE 4 MG/1 ML VIAL IV ONE (09:00)
[2017-01-24] MEDS: ETOPOSIDE IV SCH (10:32)
[2017-01-24] MEDS: SODIUM CHLORIDE 0.9% IV SCH (10:32)
[2017-01-24 11:32] VITALS: BP 106/64
--- NOTE | 2017-01-24 12:09 | Discharge Summary ---
Hospital Course - Hospital Course Hospital Course: Patient with stage III seminoma with periaortic abdominal mass status post unilateral orchiectomy. The patient has tolerated his third cycle of etoposide and cis-[place] reasonably well. He is remained ambulatory during his hospital stay. He does have moderate nausea and we will re-dose with steroid palonosetron and he may end prior to discharge today. Due to the upcoming holiday he will be scheduled for February 17 rather than February 10 for his final cycle. We anticipate a PET scan thereafter. See med list for further discharge medications Diagnosis - Discharge Diagnosis (1) Seminoma Status: Acute Specialty Discharge - Follow Up or Referrals Follow up with: Tha Post MD [Physician] - Discharge Plan - Discharge Medications Continue Promethazine Tab [Phenergan Tab] 25 mg PO Q6H PRN PRN Reason: Nausea - Follow Up or Referral Follow Up: Tha Post MD [Physician] - - Forms/Instructions Exam - Constitutional Vitals: Period Temp Pulse Resp BP Sys/Olson Pulse Ox Last 24 Hr 97.3 F-98.5 F 65-90 18-20 106-148/63-80 96-98 DS: Provider Date of admission: 01/20/17 08:18 Primary care physician: Zion Veliz MD Attending physician on admission: Tha Post MD Discharging clinician: Tha Post MD
[2017-01-24] MEDS: CISplatin 50 MG in SODIUM CHLORIDE 0.9% 500 ML IV SCH (12:32)
== END 2017-01-24 15:00 | disposition home or self-care, planned readmission (81) | DRG 847 ==
LOC: N.4E 08:18
PROVIDERS: ADMIT Specialist; ATTEND Specialist

== ENCOUNTER 2017-02-17 07:00 | Inpatient (IN) ==
[2017-02-17] MEDS ORDERED: ALPRAZolam 0.25 MG TABLET PO PRN (10:36)
[2017-02-17] MEDS ORDERED: diphenhydrAMINE CAP 25 MG CAPSULE PO PRN (10:36)
[2017-02-17] MEDS ORDERED: chlorproMAZINE 25 MG TABLET PO PRN (10:36)
[2017-02-17] MEDS ORDERED: ALUMINUM/MAGNES/SIMETH MAX STR 30 ML UDCUP PO PRN (10:36)
[2017-02-17] MEDS ORDERED: MYLANTA/LIDO VISC 2:1 300 ML BOTTLE SWISH/SPIT PRN (10:36)
[2017-02-17] MEDS ORDERED: MYLANTA/LIDO VISC 2:1 300 ML BOTTLE SWISH/SWAL PRN (10:36)
[2017-02-17] MEDS ORDERED: chlorproMAZINE INJ 25 MG in SODIUM CHLORIDE 0.9% 100 ML IV PRN (10:36)
[2017-02-17] MEDS ORDERED: MAGNESIUM HYDROXIDE SUSP 30 ML UDCUP PO PRN (10:36)
[2017-02-17] MEDS ORDERED: PROMETHAZINE INJ 25 MG in SODIUM CHLORIDE 0.9% 50 ML IV PRN (10:36)
[2017-02-17] MEDS ORDERED: guaiFENesin 200 MG/10 ML UDCUP PO PRN (10:36)
[2017-02-17] MEDS ORDERED: LOPERAMIDE 2 MG CAPSULE PO PRN ×2 (10:36)
[2017-02-17] MEDS ORDERED: ONDANSETRON 4 MG/2 ML VIAL IV PRN (10:36)
[2017-02-17] MEDS ORDERED: LACTULOSE 20 GM/30 ML UDCUP PO PRN (10:36)
[2017-02-17] MEDS ORDERED: TEMAZEPAM 7.5 MG CAPSULE PO PRN (10:36)
[2017-02-17] MEDS ORDERED: BENZTROPINE 2 MG/2 ML AMP IV PRN (10:36)
[2017-02-17] MEDS ORDERED: chlorproMAZINE INJ 50 MG in SODIUM CHLORIDE 0.9% 100 ML IV PRN (10:36)
[2017-02-17] MEDS ORDERED: traMADol 50 MG TABLET PO PRN (10:36)
[2017-02-17] MEDS ORDERED: ACETAMINOPHEN 325 MG TABLET PO PRN (10:36)
[2017-02-17 11:01] LABS: Basophils % 0.3 % (0.0-0.8); Eosinophils # 0.1 10*3/uL (0.0-0.87); Eosinophils % 0.6 % (0.00-10.9); Hematocrit 27.1 VOL% (42.0-52.0); Hemoglobin 8.9 GM/DL (14.0-18.0); Immature Granulocytes % 0.9 %; Immature Granulocytes Absolute 0.08 #; Lymphocytes # 2.5 10*3/uL (1.4-4.0); Lymphocytes % 28.5 % (21.2-54.2); Mean Corpuscular HGB Conc 32.8 GM/DL (32-36); Mean Corpuscular Hemoglobin 29 PG (27-34); Mean Corpuscular Volume 88.6 FL (87-102); Mean Platelet Volume 8.6 FL (9.6-12.0); Monocytes # 1.2 10*3/uL (0.11-0.8); Monocytes % 13.3 % (1.7-12.7); NRBC # 0.02 10*3/uL; Neutrophils % 56.4 % (38.7-73.9); Platelet Count 438 T/CUMM (130-400); Red Blood Count 3.06 MC/CUMM (3.8-5.5); Red Cell Distribution Width 21.2 % (9.3-17.3); White Blood Count 8.9 T/CUMM (4-12)
[2017-02-17 11:38] LABS: Albumin 3.2 G/DL (3.4-5.0); Bilirubin,Total 0.5 MG/DL (0.2-1.0); Calcium 8.3 MG/DL (8.5-10.1); Magnesium 1.4 MG/DL (1.8-2.4); Osmolality,Calculated 284.1 MOS/KG (273-304); Potassium 3.9 MMOL/L (3.5-5.1); Total Protein 6.6 G/DL (6.4-8.3); Uric Acid 6.5 MG/DL (3.5-7.2)
--- NOTE | 2017-02-17 14:38 | Post Interventional Procedure ---
Pre-op diagnosis: Seminoma Post-op diagnosis: same Procedure: PICC LUE Flouroscopy: 0.1 min Radiologist: Tha Mark Anesthesia: local Specimens: none sent Estimated blood loss: none Complications: none Assessment and Plan - Time spent with patient Time spent with patient: Less than 30 minutes
[2017-02-17] MEDS ORDERED: DEXAMETHASONE 4 MG/1 ML VIAL IV ONE (15:00)
[2017-02-17] MEDS ORDERED: PALONOSETRON 0.25 MG/5 ML VIAL IV ONE (15:00)
[2017-02-17] MEDS ORDERED: MAGNESIUM SULF RIDER 2 GM in PREMIX 1 EACH IV ONE (15:04)
--- NOTE | 2017-02-17 15:13 | Interventional Radiology Rpt ---
IR PICC line insertion, US guide vascular access Indication: Chemotherapy for seminoma. No peripheral IV access. PICC LINE Description: A formal timeout was performed. Maximum sterile barrier technique was used. Sonographic evaluation of the left upper extremity demonstrates patent and compressible basilar vein. The upper arm was prepped and draped in sterile fashion. 3 cc 1% lidocaine was administered subcutaneously. Under sonographic guidance, a micropuncture needle was advanced into the vein. A captured sonographic image documents the position of the needle. Needle was exchanged over a wire for a peel-away sheath. A dual lumen power PICC, cut to 44 cm, was advanced over the wire until the tip was at the RA-SVC junction. The position of the catheter was confirmed with fluoroscopic guidance and an image stored in PACS. The wire and sheath were removed. Both ports of the PICC were aspirated and flushed with heparinized saline. The device was secured with a StatLock. Fluoroscopy: 0.1 minute. Impression: PICC line ready for immediate use. Routine catheter care. PROCEDURE INTERPRETED AT [facility] DEPARTMENT OF RADIOLOGY Final Report Signed by: Tha Mark M.D.
[2017-02-17] MEDS: SODIUM CHLORIDE 0.9% 1,000 ML IV SCH (15:25)
[2017-02-17] MEDS: SODIUM CHLORIDE 0.9% IV SCH (15:52)
[2017-02-17] MEDS: ETOPOSIDE IV SCH (15:52)
[2017-02-17] MEDS: CISplatin 50 MG in SODIUM CHLORIDE 0.9% 500 ML IV SCH (17:06)
[2017-02-18] MEDS: SODIUM CHLORIDE 0.9% 1,000 ML IV SCH (06:27)
--- NOTE | 2017-02-18 09:05 | Oncology History&Physical ---
Assessment and Plan (1) Seminoma Status: Acute Assessment and plan: We will complete cycle 4 chemotherapy with plans to obtain PET scan 4 weeks as an outpatient. HCG titer is pending though this has been normal previously Current Visit: No History of Present Illness Chief complaint: Chemo History of present illness: Mr. Sheffield is a 31 year old male With stage III seminoma admitted for cycle 4 etoposide and cis-tazlina chemotherapy. Fair tolerance is noted. We are planning an outpatient PET scan. We have discussed when the patient should be able to return to his work duties. He appears in no distress. Labs are appropriate for treatment with hypomagnesemia noted Home Medications Medication Instructions Recorded Confirmed Type Promethazine Tab [Phenergan Tab] 25 mg PO Q6H PRN 12/13/16 02/17/17 History Allergies Allergy/AdvReac Type Severity Reaction Status Date / Time No Known Allergies Allergy Verified 11/08/16 06:37 Medical,Surgical,& Family Hx - Medical History Neurology: No history of: Seizures HEENT: No history of: Eye Problem Respiratory: No history of: Respiratory Problems (Flu Vac Jul or Aug 2015/2016. CHRONIC COUGH) Genitourinary: History of: Problems (Lt Testicle Swollen/Tender; 10/23/16 Sched for US. LT TESTICULAR CA.) Gastrointestinal: History of: Liver Problems (Fatty Liver on CT), GI Problems ( 5 cm LUQ Abd Mass & Lump on CT) Musculoskeletal: History of: Back/Neck Problems (Low Back Pain) - Surgical History Abdominal Surgeries: Patient denies: Colonoscopy, EGD - Family History Family History: Denies;: Family Anesthesia Reaction - Social History Smoking Status: Never smoker - Constitutional Constitutional: Absent: fever(s), malaise, night sweats, weakness, weight loss - EENT Eye: Absent: blurry vision Ears: Absent: decreased hearing Nose, mouth and throat: Present: dysphagia. Absent: dizziness - Cardiovascular Cardiovascular ROS IM: Absent: chest pain - Respiratory Respiratory: Absent: cough - Gastrointestinal Gastrointestinal: Absent: abdominal pain, early satiety, fecal incontinence, heartburn Exam - Constitutional Vitals: Period Temp Pulse Resp BP Sys/Olson Pulse Ox Last 24 Hr 96.4 F-98.6 F 79-94 19-22 107-138/50-87 92-97 General appearance: no acute distress, morbidly obese - Head Head Exam: Present: normal inspection, normocephalic - Eye Eye Exam: Present: EOMI. Absent: conjunctival injection, periorbital swelling, scleral icterus Pupils: Present: PERRL, normal accommodation - ENT ENT exam: Present: normal external ear exam - Neck Neck exam: Present: normal inspection. Absent: lymphadenopathy - Respiratory Respiratory exam: Present: CTAB. Absent: accessory muscle use, chest wall tenderness - Cardiovascular Cardiovascular exam: Present: RRR. Absent: systolic murmur - GI/Abdominal GI/Abdominal exam: Absent: ascites, distended, firm, guarding - Psychiatric Psychiatric exam: Present: normal affect, normal mood - Skin Skin exam: Present: warm, dry Results - Labs CBC & BMP: 02/17/17 10:46 02/17/17 10:46
[2017-02-18] MEDS: SODIUM CHLORIDE 0.9% IV SCH (15:55)
[2017-02-18] MEDS: ETOPOSIDE IV SCH (15:55)
[2017-02-18] MEDS: CISplatin 50 MG in SODIUM CHLORIDE 0.9% 500 ML IV SCH (17:22)
[2017-02-19 05:32] LABS: Beta HCG Titer < 1.0 mIU/ml (0-1); Magnesium 1.6 MG/DL (1.8-2.4)
[2017-02-19] MEDS: SODIUM CHLORIDE 0.9% 1,000 ML IV SCH ×2 (07:40→17:54)
--- NOTE | 2017-02-19 08:30 | Oncology Progress Note ---
Assessment and Plan (1) Seminoma Status: Acute Assessment and plan: We will complete cycle 4 chemotherapy with plans to obtain PET scan 4 weeks as an outpatient. HCG titer is pending though this has been normal previously Current Visit: No Oncology Subjective PN Interval history: Hospital day 3 for cycle 4 etoposide cisplatin chemotherapy. Patient is tolerating diet. He is nontoxic. He is ambulatory and in no acute distress. Continue with chemotherapy as ordered Exam - Constitutional Vitals: Period Temp Pulse Resp BP Sys/Olson Pulse Ox Last 24 Hr 97.0 F-98.4 F 80-97 18-22 105-156/55-92 95-98 Results - Labs CBC & BMP: 02/17/17 10:46 02/17/17 10:46 Specialty Discharge - Follow Up or Referrals
[2017-02-19] MEDS: SODIUM CHLORIDE 0.9% IV SCH (13:58)
[2017-02-19] MEDS: ETOPOSIDE IV SCH (13:58)
[2017-02-19] MEDS: CISplatin 50 MG in SODIUM CHLORIDE 0.9% 500 ML IV SCH (15:18)
--- NOTE | 2017-02-20 09:41 | Discharge Summary ---
Hospital Course - Hospital Course Hospital Course: Patient admitted for cycle 4 chemotherapy with etoposide and cisplatin. He is tolerated this reasonably well. We anticipate last dose tomorrow morning with doses of Decadron Aloxi and Emend to assist with delayed nausea vomiting. His follow-up will be PET scan on March 17 and office visit with Dr. Gongora on March 24. The patient has remained ambulatory and nontoxic appearing during his hospitalization. We are also assisting with return to work instructions on her around March 02. His prognosis is good at this time. Diagnosis - Discharge Diagnosis (1) Seminoma Status: Acute Specialty Discharge - Follow Up or Referrals Discharge Plan - Discharge Medications Continue Promethazine Tab [Phenergan Tab] 25 mg PO Q6H PRN PRN Reason: Nausea - Follow Up or Referral - Forms/Instructions Forms: Acute Care Work/School Release Exam - Constitutional Vitals: Period Temp Pulse Resp BP Sys/Olson Pulse Ox Last 24 Hr 96.8 F-98.5 F 77-98 18-21 102-144/55-87 94-99 DS: Provider Date of admission: 02/17/17 09:07 Primary care physician: Zion Veliz MD Attending physician on admission: Tha Post MD Discharging clinician: Tha Post MD
[2017-02-20] MEDS: ETOPOSIDE IV SCH (10:55)
[2017-02-20] MEDS: SODIUM CHLORIDE 0.9% IV SCH (10:55)
[2017-02-20] MEDS: SODIUM CHLORIDE 0.9% 1,000 ML IV SCH ×2 (11:56→13:57)
[2017-02-20] MEDS: CISplatin 50 MG in SODIUM CHLORIDE 0.9% 500 ML IV SCH (12:43)
[2017-02-21] MEDS ORDERED: PALONOSETRON 0.25 MG/5 ML VIAL IV ONE ×2 (06:30→09:04)
[2017-02-21] MEDS ORDERED: DEXAMETHASONE 10 MG/1 ML VIAL IV ONE ×2 (06:30→09:05)
[2017-02-21] MEDS: SODIUM CHLORIDE 0.9% IV SCH ×2 (06:49→10:12)
[2017-02-21] MEDS: ETOPOSIDE IV SCH ×2 (06:49→10:12)
[2017-02-21 07:49] VITALS: BP 121/70
[2017-02-21] MEDS: CISplatin 50 MG in SODIUM CHLORIDE 0.9% 500 ML IV SCH (08:19)
[2017-02-21] MEDS: SODIUM CHLORIDE 0.9% 1,000 ML IV SCH (08:19)
== END 2017-02-21 11:00 | disposition home or self-care (01) | DRG 847 ==
LOC: N.4E 09:07
PROVIDERS: ADMIT Specialist; ATTEND Specialist

== ENCOUNTER 2021-12-12 08:17 | Inpatient (IN) ==
[2021-12-06 11:53] LABS: Basophils # 0.1 10*3/uL (0.0-0.2); Basophils % 0.5 % (0.0-0.8); Eosinophils # 0.2 10*3/uL (0.0-0.87); Eosinophils % 1.5 % (0.00-10.9); Hematocrit 46.7 VOL% (42.0-52.0); Hemoglobin 15.6 GM/DL (14.0-18.0); Immature Granulocytes % 0.4 %; Immature Granulocytes Absolute 0.04 #; Lymphocytes # 2.7 10*3/uL (1.4-4.0); Lymphocytes % 27.7 % (21.2-54.2); Mean Corpuscular HGB Conc 33.4 GM/DL (32-36); Mean Corpuscular Volume 88.3 FL (87-102); Monocytes # 0.6 10*3/uL (0.11-0.8); Monocytes % 6.1 % (1.7-12.7); Neutrophils % 63.8 % (38.7-73.9); Platelet Count 363 T/CUMM (130-400); Red Blood Count 5.29 MC/CUMM (3.8-5.5); Red Cell Distribution Width 12.3 % (9.3-17.3); White Blood Count 9.8 T/CUMM (4-12)
[2021-12-06 12:00] LABS: Calcium 9.3 MG/DL (8.5-10.1); Potassium 4.3 MMOL/L (3.5-5.1)
[2021-12-12] MEDS ORDERED: ceFAZolin 1,000 MG VIAL ONE (10:30)
[2021-12-12] MEDS ORDERED: LACTATED RINGERS 1,000 ML IV SCH (10:30)
[2021-12-12] MEDS ORDERED: BUPIVACAINE MPF 0.25% 30 ML VIAL ONE (11:06)
[2021-12-12] MEDS ORDERED: LIDOCAINE 1%/EPI INJ 20 ML VIAL ONE (11:06)
[2021-12-12] MEDS ORDERED: TISSUE ADHESIVE 1 EACH APPLICATOR TOP ONE (11:06)
[2021-12-12] MEDS ORDERED: FAMOTIDINE 20 MG TABLET PO ONE (11:11)
[2021-12-12] MEDS ORDERED: DIAZEPAM 5 MG TABLET PO ONE (11:11)
[2021-12-12] MEDS ORDERED: ROCURONIUM 50 MG/5 ML VIAL IV ONE ×2 (11:40→13:14)
[2021-12-12] MEDS ORDERED: MIDAZOLAM 2 MG/2 ML VIAL ONE (11:40)
[2021-12-12] MEDS ORDERED: propofoL 200 MG/20 ML VIAL IV ONE ×2 (11:40→13:09)
[2021-12-12] MEDS ORDERED: LIDOCAINE 2% 5 ML VIAL ONE (11:40)
[2021-12-12] MEDS ORDERED: fentaNYL 100 MCG/2 ML VIAL ONE ×2 (11:40→13:07)
[2021-12-12] MEDS ORDERED: ONDANSETRON 4 MG/2 ML VIAL ONE (12:27)
[2021-12-12] MEDS ORDERED: SEVOFLURANE 1 UNIT/15 MINUTE INH ONE ×2 (12:28→13:14)
[2021-12-12] MEDS ORDERED: SUGAMMADEX 200 MG/2 ML VIAL IV ONE (13:18)
[2021-12-12] MEDS ORDERED: ONDANSETRON 4 MG/2 ML VIAL IV PRN (13:51)
[2021-12-12] MEDS ORDERED: MORPHINE 2 MG/1 ML SYRINGE IV PRN (13:51)
[2021-12-12 14:21] LABS: Hematocrit 47.5 VOL% (42.0-52.0); Hemoglobin 16.1 GM/DL (14.0-18.0)
[2021-12-12 21:32] LABS: Hematocrit 44.2 VOL% (42.0-52.0); Hemoglobin 15.2 GM/DL (14.0-18.0)
[2021-12-13 05:31] LABS: Hematocrit 44.6 VOL% (42.0-52.0); Hemoglobin 15.1 GM/DL (14.0-18.0)
[2021-12-13 05:51] LABS: Albumin 2.9 G/DL (3.4-5.0); Calcium 8.9 MG/DL (8.5-10.1); Potassium 3.9 MMOL/L (3.5-5.1); Total Protein 7.7 G/DL (6.4-8.2)
[2021-12-13] MEDS ORDERED: PANTOPRAZOLE 40 MG TABLET PO SCH (09:00)
[2021-12-13] MEDS ORDERED: GLUCAGON 1 MG VIAL IM PRN (10:28)
[2021-12-13] MEDS ORDERED: DEXTROSE 10% 250 ML BAG IV PRN (10:28)
[2021-12-13 12:00] VITALS: BP 143/87
== END 2021-12-13 16:23 | disposition home or self-care (01) | DRG 419 ==
LOC: N.OR 08:17 → N.SDSINP 10:27 → N.3E 13:51
PROVIDERS: ADMIT Surgery; ATTEND Surgery
PROC: LAPCHOL (2021-12-12 11:50)